=== PATIENT | female | born 1995 | race Caucasian/White ===

== ENCOUNTER → 2018-06-12 | Outpatient (CLI) | payer BC ==
[2012-04-09 00:05] VITALS: BP 121/72
== END ==
LOC: RAD 09:50
DX: N91.2 Amenorrhea, unspecified (principal)

== ENCOUNTER → 2024-12-05 | Outpatient (CLI) | payer BC | LOC: RAD 09:48 | DX: N85.00 Endometrial hyperplasia, unspecified (principal); N83.8 Other noninflammatory disorders of ovary, fallopian tube and broad ligament ==